=== PATIENT | female | born 1960 | race Caucasian/White ===

== ENCOUNTER 2017-11-21 10:30 | Outpatient (REF) | payer OTHER, SELFPAY ==
[2017-11-21 21:04] LABS: Anion Gap 11.2 mmol/L (3-11); BUN 11 mg/dL (7-18); CO2 25.8 mmol/L (21.0-32.0); CREATININE 0.79 mg/dL (0.55-1.02); Calcium 9.4 mg/dL (8.5-10.1); Chloride 107 mmol/L (98-107); Glucose 109 mg/dL (70-100); Potassium 5.5 mmol/L (3.5-5.1); Sodium 144 mmol/L (136-145)
== END 2017-11-21 10:31 ==
LOC: NCHCN 10:30
PROVIDERS: PCP Registered Nurse; Visit Provider Registered Nurse
DX: I10 Essential (primary) hypertension (principal); E66.9 Obesity, unspecified
CPT/HCPCS: 80048

== ENCOUNTER 2017-12-08 10:16 | Outpatient (REF) | payer OTHER, SELFPAY ==
[2017-12-08 20:53] LABS: Anion Gap 7.8 mmol/L (3-11); BUN 14 mg/dL (7-18); CO2 30.2 mmol/L (21.0-32.0); CREATININE 0.87 mg/dL (0.55-1.02); Calcium 9.1 mg/dL (8.5-10.1); Chloride 102 mmol/L (98-107); Glucose 98 mg/dL (70-100); Potassium 3.7 mmol/L (3.5-5.1); Sodium 140 mmol/L (136-145)
== END 2017-12-08 10:17 ==
LOC: NCHCN 10:16
PROVIDERS: PCP Registered Nurse; Visit Provider Registered Nurse
DX: I10 Essential (primary) hypertension (principal)
CPT/HCPCS: 80048

== ENCOUNTER 2018-10-30 12:19 | Outpatient (REF) | payer OTHER, SELFPAY ==
[2018-10-30 22:25] LABS: Potassium 3.7 mmol/L (3.5-5.1)
== END 2018-10-30 12:39 ==
LOC: NCHCN 12:19
PROVIDERS: PCP Registered Nurse; Visit Provider Nurse Practitioner Family
DX: R50.9 Fever, unspecified (principal); R79.89 Other specified abnormal findings of blood chemistry; E87.6 Hypokalemia
CPT/HCPCS: 84132

== ENCOUNTER 2018-12-28 21:37 | Outpatient (REF) | payer OTHER, SELFPAY ==
[2018-12-28 21:30] LABS: ALT 35 U/L (14-59); AST 30 U/L (15-37); Alkaline Phosphatase 77 U/L (46-116); Bilirubin, Direct 0.14 mg/dL (0.00-0.20); Bilirubin, Total 0.4 mg/dL (0.2-1.0); Total Protein 7.3 g/dL (6.4-8.2)
== END 2018-12-28 21:57 ==
LOC: NCHCN 21:37
PROVIDERS: PCP Registered Nurse; Visit Provider Nurse Practitioner Family
DX: R79.89 Other specified abnormal findings of blood chemistry (principal)
CPT/HCPCS: 80076

== ENCOUNTER 2019-01-26 15:44 | Outpatient (REF) | payer OTHER, SELFPAY ==
[2019-01-26 22:16] LABS: Abs Immature Grans 0.02 k/cumm (0.0-0.09); Absolute Basophil Count 0.04 k/cumm (0.0-0.2); Absolute Eosinophil Count 0.13 k/cumm (0.0-0.7); Absolute Lymphocyte Count 2.24 k/cumm (1.2-3.4); Absolute Monocyte Count 0.51 k/cumm (0.11-0.7); Absolute Neutrophil Count 2.89 k/cumm (1.2-6.7); Basophils % 0.7; Eosinophils % 2.2; HCT 43.8 % (36.0-46.0); HGB 15.2 g/dL (12.0-15.5); Immature Grans % 0.3; Lymphocytes % 38.4; Mean Corp. HGB Concentration 34.7 g/dL (32.0-36.0); Mean Corpuscular Hemoglobin 31.1 pg (27.0-33.0); Mean Corpuscular Volume 89.8 fL (80-95); Mean Platelet Volume 10.7 fL (8.0-11.0); Monocytes % 8.7; Neutrophils % 49.7; Platelet Count 249 x1000/uL (130-400); RBC 4.88 m/cumm (4.00-5.20); RBC Distribution Width 13.3 % (11.7-14.6); White Blood Cell Count 5.83 k/cumm (4.4-10.8)
[2019-01-26 23:06] LABS: ESR 13 mm/hr (0-30)
[2019-01-26 23:07] LABS: Hemoglobin A1C 5.7 % (4.5-6.2)
[2019-01-26 23:34] LABS: Anion Gap 10.4 mmol/L (3-11); BUN 13 mg/dL (7-18); CO2 29.6 mmol/L (21.0-32.0); CREATININE 0.93 mg/dL (0.55-1.02); Calcium 9.3 mg/dL (8.5-10.1); Chloride 102 mmol/L (98-107); Glucose 103 mg/dL (70-100); Potassium 3.6 mmol/L (3.5-5.1); Sodium 142 mmol/L (136-145); TSH (W/Ref FT4) 2.94 uIU/mL (0.36-3.74)
[2019-01-28 13:18] LABS: Vitamin D 25 Total 18.8 ng/ml (30-100)
== END 2019-01-26 16:04 ==
LOC: NCHCN 15:44
PROVIDERS: PCP Registered Nurse; Visit Provider Family Medicine
DX: I10 Essential (primary) hypertension (principal); R53.83 Other fatigue; R68.2 Dry mouth, unspecified; H04.129 Dry eye syndrome of unspecified lacrimal gland; E66.9 Obesity, unspecified
CPT/HCPCS: 80048; 82306; 85652; 83036; 84443; 85025

== ENCOUNTER 2019-03-01 11:54 | Outpatient (CLI) | payer OTHER, SELFPAY ==
[2019-03-02 16:47] LABS: SS-A Antibody 3.2 Units (<20.0)
[2019-03-02 16:51] LABS: SS-B (La) Ab, IgG 4.1 Units (<20.0)
== END 2019-03-01 12:14 ==
PROVIDERS: PCP Registered Nurse; Visit Provider Otolaryngology Otolaryngology/Facial Plastic Surgery
DX: R68.2 Dry mouth, unspecified (principal); J34.89 Other specified disorders of nose and nasal sinuses; H04.123 Dry eye syndrome of bilateral lacrimal glands
CPT/HCPCS: 36415; 86235

== ENCOUNTER 2019-11-23 15:19 | Outpatient (REF) | payer OTHER, SELFPAY ==
[2019-11-23 22:08] LABS: Hemoglobin A1C 5.9 % (3.8-5.6)
[2019-11-23 22:13] LABS: ALT 55 U/L (14-59); AST 30 U/L (15-37); Albumin 3.9 g/dL (3.4-5.0); Alkaline Phosphatase 67 U/L (46-116); Anion Gap 9.7 mmol/L (3-11); BUN 16 mg/dL (7-18); Bilirubin, Total 0.4 mg/dL (0.2-1.0); CO2 28.3 mmol/L (21.0-32.0); CREATININE 0.81 mg/dL (0.55-1.02); Calcium 9.2 mg/dL (8.5-10.1); Calculated LDL 114 mg/dL (<100); Chloride 104 mmol/L (98-107); Cholesterol 185 mg/dL (<200); Glucose 96 mg/dL (74-106); HDL Cholesterol 36 mg/dL (40-60); Potassium 3.3 mmol/L (3.5-5.1); Sodium 142 mmol/L (136-145); Total Protein 6.7 g/dL (6.4-8.2); Triglyceride 177 mg/dL (<150)
[2019-11-25 05:23] LABS: Vitamin D 25 Total 44.6 ng/ml (30-100)
== END 2019-11-23 15:39 ==
LOC: NCHCN 15:19
PROVIDERS: PCP Registered Nurse; Visit Provider Family Medicine
DX: Z00.00 Encounter for general adult medical examination without abnormal findings (principal); R73.03 Prediabetes; E66.9 Obesity, unspecified; E55.9 Vitamin D deficiency, unspecified
CPT/HCPCS: 80053; 80061; 82306; 83036

== ENCOUNTER 2019-12-02 13:58 | Outpatient (REF) | payer OTHER, SELFPAY ==
--- NOTE | 2019-12-02 11:30 | PAPFT_PTH ---
PATIENT: DENIZ NOWAK LOC: [facility]#:[id number] AGE/SX: 59/F ROOM: RE12/02/[address]: Garth Colon : 1960 BED: DIS: 12/02/2019 SPEC #: [id number] RECD: 12/03/19 12:39 STATUS: WILBERT REQ #: [id number] SARA: 12/02/19 11:[address]: Garth Colon DEPT: [facility] Cytology RECD BY: Tasha Guo ENTERED: 12/03/19 12:40 SP TYPE: PAPFT OTHR DR: Ava Narayan Tissues: 1 - CX/ENDOCX FOR PAP SMEARS Procedures: PAP THIN PREP/[facility] Screening HPV DNA PROBE Comments: [id number]
== END 2019-12-02 14:18 ==
LOC: NCHCN 13:58
PROVIDERS: PCP Registered Nurse; Visit Provider Family Medicine
DX: Z12.4 Encounter for screening for malignant neoplasm of cervix (principal); Z11.51 Encounter for screening for human papillomavirus (HPV)
CPT/HCPCS: 88142; 87624

== ENCOUNTER 2019-12-17 15:27 | Outpatient (REF) | payer OTHER, SELFPAY ==
[2019-12-17 22:19] LABS: Anion Gap 9.1 mmol/L (3-11); BUN 16 mg/dL (7-18); CO2 29.9 mmol/L (21.0-32.0); CREATININE 0.76 mg/dL (0.55-1.02); Calcium 9.5 mg/dL (8.5-10.1); Chloride 102 mmol/L (98-107); Glucose 110 mg/dL (74-106); Sodium 141 mmol/L (136-145); TSH (W/Ref FT4) 2.36 uIU/mL (0.36-3.74); Vitamin B12 375 pg/mL (193-986)
== END 2019-12-17 15:47 ==
LOC: NCHCN 15:27
PROVIDERS: PCP Registered Nurse; Visit Provider Family Medicine
DX: Z00.00 Encounter for general adult medical examination without abnormal findings (principal); Z13.228 Encounter for screening for other metabolic disorders; Z13.29 Encounter for screening for other suspected endocrine disorder; Z13.21 Encounter for screening for nutritional disorder
CPT/HCPCS: 80048; 82607; 84443

== ENCOUNTER 2020-01-05 22:03 | Outpatient (REF) | payer OTHER, SELFPAY ==
[2020-01-05 22:19] LABS: Potassium 3.3 mmol/L (3.5-5.1)
== END 2020-01-05 22:23 ==
LOC: NCHCN 22:03
PROVIDERS: PCP Registered Nurse; Visit Provider Family Medicine
DX: E87.6 Hypokalemia (principal)
CPT/HCPCS: 84132

== ENCOUNTER 2020-03-02 13:34 | Outpatient (REF) | payer OTHER, SELFPAY ==
[2020-03-02 21:32] LABS: Potassium 3.4 mmol/L (3.5-5.1)
[2020-03-02 22:01] LABS: Hemoglobin A1C 5.7 % (<5.7)
== END 2020-03-02 13:54 ==
LOC: NCHCN 13:34
PROVIDERS: PCP Registered Nurse; Visit Provider Family Medicine
DX: E87.6 Hypokalemia (principal); R73.03 Prediabetes; R79.89 Other specified abnormal findings of blood chemistry
CPT/HCPCS: 83036; 84132

== ENCOUNTER 2020-03-23 21:42 | Outpatient (REF) | payer OTHER, SELFPAY | END 2020-03-23 22:02 | LOC: NCHCN 21:42 | PROVIDERS: PCP Registered Nurse; Visit Provider Family Medicine | DX: E87.6 Hypokalemia (principal) | CPT/HCPCS: 84132 ==